=== PATIENT | male | born 1960 ===

== ENCOUNTER 2019-05-22 07:35 | Day surgery (SDC) | payer BC ==
[2019-05-22] MEDS ORDERED: PROPOFOL 10 MG/ML VIAL IV ONE (07:36)
[2019-05-22] MEDS ORDERED: LIDOCAINE 2% MDV (20MG/ML) 20ML VIAL IV ONE (07:36)
--- NOTE | 2019-05-23 09:50 | Operative Note ---
OPERATION: COLONOSCOPY with cold snare polypectomy x8. PREOPERATIVE DIAGNOSIS: Colon cancer screening. POSTOPERATIVE DIAGNOSIS: Multiple colon polyps. PREPARATION QUALITY: Good to excellent. ESTIMATED BLOOD LOSS: Minimum. SPECIMENS: Ascending colon polyps x3, transverse colon polyp not retrieved, descending colon polyps x3 retrieved, and significant colon polyp x1 retrieved. COMPLICATIONS: None apparent. PROCEDURE: After informed consent was obtained from the patient, he was placed in the left lateral decubitus position in the endoscopy suite, sedated and monitored by the department of anesthesia. Digital rectal exam was unremarkable. A well-lubricated [id number] colonoscope was inserted into the rectum and advanced to the cecum. Preparation quality was good to excellent. The cecum, cecal bulb, ileocecal valve, and appendiceal orifice were unremarkable. The ascending colon revealed 3 sessile polyps ranging in size from 3-6 mm each removed with a cold snare and retrieved. There was a 5 mm sessile transverse colon removed with a cold snare but not retrieved. Three polyps were seen in the descending colon ranging in size from 4-7 mm each removed with a cold snare. There was a somewhat pedunculated 8 mm polyp in the sigmoid colon removed with a cold snare. There was scant bleeding at the site. The polyp was retrieved. The remainder of the sigmoid colon, descending colon, and rectum were unremarkable. J-turn views of the anorectum were unremarkable other than perhaps a hypertrophied anal papilla. The endoscope was straightened, the rectal ampulla deflated, and the endoscope was removed. RECOMMENDATIONS: I would suggest the patient resume his medications and diet. He will require repeat exam in 1 year. As always, thank you for allowing me to participate in the healthcare of your patients. PORFIRIO
== END 2019-05-22 09:52 | disposition home or self-care (01) ==
LOC: HOP 07:35
PROVIDERS: ATTEND Internal Medicine Gastroenterology
DX: Z12.11 Encounter for screening for malignant neoplasm of colon (principal); D12.2 Benign neoplasm of ascending colon; D12.4 Benign neoplasm of descending colon; D12.5 Benign neoplasm of sigmoid colon; D12.3 Benign neoplasm of transverse colon; E11.9 Type 2 diabetes mellitus without complications